=== PATIENT | male | born 1990 | race Caucasian/White ===

== ENCOUNTER 2021-01-08 10:33 | Emergency (ER) | payer BC, OTHER ==
[~2021-01-08] VITALS: Ht 177.8 cm; Wt 109.0 kg
[~2021-01-08 10:33] MED LIST: NO HOME MEDS; PERM59LI4 TP
[2021-01-08 10:39] VITALS: BP 132/90
[2021-01-08] MEDS ORDERED: proparacaine 0.5% ophthalmic drops 15ml EACHEYE ONE (12:10)
[2021-01-08] MEDS ORDERED: ERYT1OIN6 EACHEYE (12:22)
== END 2021-01-08 13:10 | disposition home or self-care (01) ==
LOC: ER 10:34
DX: S05.02XA Injury of conjunctiva and corneal abrasion without foreign body, left eye, initial encounter (principal); H57.12 Ocular pain, left eye; H53.8 Other visual disturbances; Z79.2 Long term (current) use of antibiotics; Z79.899 Other long term (current) drug therapy; X58.XXXA Exposure to other specified factors, initial encounter; Y93.89 Activity, other specified; Y92.89 Other specified places as the place of occurrence of the external cause; Y99.8 Other external cause status
CPT/HCPCS: 99283